=== PATIENT | male | born 1995 | race Hispanic/Latino ===

== ENCOUNTER → 2023-12-07 | Outpatient (CLI) | payer OTHER, SELFPAY ==
--- OUTSIDE RECORDS SUMMARY | 2023-12-07 10:31 | XMS RPT_ITS | CCD ---
Author Name Unknown Address [address] [facility] [address] [place] [address] Organization [facility] Care Team Providers Care Subacute Nurse Name Role Phone MAST MALTED MIL[employer] MIXER-SPECIAL PROCEDURE TECHNOLOGIST, RENA Primary Care Physician [phone] MAST MALTED MIL[employer] MIXER-SPECIAL PROCEDURE TECHNOLOGIST, RENA Attending Unavailabl e MAST MALTED MILK MIXER-SPECIAL PROCEDURE TECHNOLOGIST, RENA Primary Care Unavailabl e MAST MALTED MILK MIXER-SPECIAL PROCEDURE TECHNOLOGIST, RENA Primary Care Unavailabl e MAST MALTED MILK MIXER-SPECIAL PROCEDURE TECHNOLOGIST, RENA Attending Unavailabl e MAST MALTED MILK MIXER-SPECIAL PROCEDURE TECHNOLOGIST, RENA Primary Care Unavailabl e MAST MALTED MILK MIXER-SPECIAL PROCEDURE TECHNOLOGIST, RENA Attending Unavailabl e ANN CUEVAS DO Attending Unavailable MAST MALTED MILK MIXER-SPECIAL PROCEDURE TECHNOLOGIST, RENA Primary Care Unavailabl e LALO ANGELES, QUAN Beck Attending Unavailable MAST MALTED MILK MIXER-SPECIAL PROCEDURE TECHNOLOGIST, RENA Primary Care Unavailabl e AMALIA ANGELES, SOFIA Cummings Attending Unavail able MAST MALTED MILK MIXER-SPECIAL PROCEDURE TECHNOLOGIST, RENA Primary Care Unavailabl e MAST MALTED MILK MIXER-SPECIAL PROCEDURE TECHNOLOGIST, RENA Primary Care Unavailabl e MAST MALTED MILK MIXER-SPECIAL PROCEDURE TECHNOLOGIST, RENA Attending Unavailabl e MAST MALTED MILK MIXER-SPECIAL PROCEDURE TECHNOLOGIST, RENA Primary Care Unavailabl e MAST MALTED MILK MIXER-SPECIAL PROCEDURE TECHNOLOGIST, RENA Attending Unavailabl e MAST MALTED MILK MIXER-SPECIAL PROCEDURE TECHNOLOGIST, RENA Primary Care Unavailabl e MAST MALTED MILK MIXER-SPECIAL PROCEDURE TECHNOLOGIST, RENA Attending Unavailabl e Medications Current Medications Medication Drug Class(es) Dates Sig (Normalized) Sig (Original) acetaminophen 325 mg oral tablet (1 source) Start: 09-27-2023 End: 10-07-2023 acetaminophen 325 mg oral tablet Dose : 650 mg = 2 tab(s), Oral, q4h, PRN as needed for fever, X 10 day(s), # 50 tab(s), 0 Refill(s), 10/07/23 9:53:00 AM EST Start Date: 09/27/23 Stop Date: 10/07/23 Status: Ordered azithromycin 250 mg oral tablet (1 source) Macrolide Antimicrobial Start: 05-07-2023 End: 05-12-2023 take 1 tablet by mouth once daily Zithromax Z-Andrey 250 mg oral tablet 1 dose, Oral, Daily, X 5 day(s), # 6 tab(s), 0 Refill(s), 05/12/23 1:15:00 AM EDT, 73.2 Start Date: 05/07/23 Stop Date: 05/12/23 Status: Ordered benzonatate 100 mg oral capsule (1 source) Non-narcotic Antitussive Start: 09-27-2023 End: 10-02-2023 Tessalon Perles 100 mg oral capsule Dose : 100 mg = 1 cap(s), Oral, q8h, PRN as needed for cough, X 5 day(s), # 30 cap(s), 0 Refill(s), 10/02/23 9:53:00 AM EST Start Date: 09/27/23 Stop Date: 10/02/23 Status: Ordered cetirizine hydrochloride 10 mg oral tablet (2 sources) Histamine-1 Receptor Antagonist Start: 08-25-2023 Zyrtec 10 mg oral tablet Dose : 10 mg = 1 tab(s), Oral, qDay, # 30 tab(s), 0 Refill(s), Pharmacy: [facility] #[id number], 166, cm, 08/25/23 9:32:00 EST, Height, kg, 08/25/23 9:32:00 EST, Dosing Weight Start Date: 08/25/23 Status: Ordered ibuprofen 600 mg oral tablet (1 source) Nonsteroidal Anti-inflammatory Drug Start: 09-27-2023 End: 10-07-2023 ibuprofen 600 mg oral tablet Dose : 600 mg = 1 tab(s), Oral, q6h, PRN for pain, Take with food or milk., X 10 day(s), # 40 tab(s), 0 Refill(s), 10/07/23 9:54:00 AM EST Start Date: 09/27/23 Stop Date: 10/07/23 Status: Ordered imiquimod 50 mg/ml topical cream (4 sources) Start: 04-28-2023 End: 08-30-2023 imiquimod 5% topical cream Apply 1 rigo, Topical, 3x/Wk, applied directly to wart; apply in a thin film to the affected skin and rub in gently and completelyapply prior to normal sleeping hrs and leave on for 6 to 10 hrs; may use for up to 16 weeks, # 24 EA, 3 Refill(s), Pharmacy: [facility] #[id number], Cream, 166, cm, 04/21/23 15:14:00 EDT, Height, 73.2, kg, 04/21/23 15:14:00 EDT, Dosing Weight Start Date: 04/28/23 Stop Date: 08/30/23 Status: Ordered loratadine 10 mg oral tablet (1 source) Start: 05-23-2023 Claritin 10 mg oral tablet Dose : 10 mg = 1 tab(s), Oral, qDay, # 30 tab(s), 2 Refill(s), Pharmacy: [facility] #[id number], 166, cm, 05/10/23 9:39:00 EDT, Height, kg, 05/10/23 9:39:00 EDT, Dosing Weight Start Date: 05/23/23 Status: Ordered tolnaftate 10 mg/ml topical cream (7 sources) Start: 04-21-2023 End: 04-27-2024 Tinactin 1% topical cream Apply 1 rigo, Topical, BID, # 30 gram(s), 1 Refill(s), Pharmacy: [facility] #[id number], Cream, 166, cm, 04/21/23 15:14:00 EDT, Height, 73.2, kg, 04/21/23 15:14:00 EDT, Dosing Weight Start Date: 04/21/23 Stop Date: 04/27/24 Status: Ordered valACYclovir 1000 mg oral tablet (3 sources) Herpesvirus Nucleoside Analog DNA Polymerase Inhibitor, Herpes Simplex Virus Nucleoside Analog DNA Polymerase Inhibitor, Herpes Zoster Virus Nucleoside Analog DNA Polymerase Inhibitor Start: 07-28-2023 valACYclovir 1 g oral tablet 0 Refill(s), 72.3 Start Date: 07/28/23 Status: Ordered Problems Active Problems Problem Classification Problem Date Documented Date Episodic/Chronic Genitourinary symptoms and ill-defined conditions (6 sources) Blood in urine 05-10-2023 Episodic Lymphadenitis (1 source) Cervical lymphadenopathy 10-03-2023 Episodic Mycoses (7 sources) Tinea cruris 04-21-2023 Episodic Other male genital disorders (2 sources) Disorder of penis, unspecified; 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, unspecified] Onset: 07-28-2023 Chronic Other skin disorders (3 sources) Eruption 07-28-2023 Episodic Other upper respiratory disease (2 sources) Seasonal allergy 08-25-2023 Chronic Otitis media and related conditions (2 sources) Dysfunction of eustachian tube 08-25-2023 Episodic Residual codes; unclassified (6 sources) High risk sexual behavior 05-10-2023 Episodic Skin and subcutaneous tissue infections (1 source) Acute lymphangitis of neck; Translations: [Acute lymphangitis of neck] Onset: 05-07-2023 Episodic Unclassified (7 sources) Main spoken language Haitian 04-21-2023 Unclassified (12 sources) Patient encounter status 05-10-2023 Viral infection (3 sources) Genital herpes simplex 07-05-2023 Chronic Viral infection (8 sources) Genital warts; Translations: [Viral disease] Onset: 09-27-2023 04-21-2023 Episodic Past or Other Problems Problem Classification Problem Date Documented Date Episodic/Chronic Immunizations and screening for infectious disease (2 sources) Encounter for screening for infections with a predominantly sexual mode of transmission; Translations: [Encounter for screening for infections with a predominantly sexual mode of transmission] Onset: 05-10-2023 Episodic Other upper respiratory infections (8 sources) Sore throat symptom; Translations: [Acute pharyngitis, unspecified] Onset: 05-10-2023 05-10-2023 Episodic Residual codes; unclassified (2 sources) High risk heterosexual behavior; Translations: [High risk heterosexual behavior] Onset: 05-10-2023 Episodic Results Test Name Value Interpretation Reference Range Facil ity Vital Signs Date Time Vital Sign Value Performing Clinician Facility 09-27-2023 10:50-0500 Body temperature 99.5 [degF] SOFIA HOLLAND MD [facility] 09-27-2023 09:35-0500 Body temperature 101.66 [degF] SOFIA HOLLAND MD [facility] 09-27-2023 09:35-0500 Diastolic Blood Pressure Non-Invasive 78 mm[Hg] SOFIA HOLLAND MD [facility] 09-27-2023 09:35-0500 Heart rate 111 /min SOFIA HOLLAND MD [facility] 09-27-2023 09:35-0500 Respiratory rate 20 /min SOFIA HOLLAND MD [facility] 09-27-2023 09:35-0500 Systolic Blood Pressure Non-Invasive 114 mm[Hg] SOFIA HOLLAND MD [facility] 05-07-2023 01:15-0400 Body temperature 98.6 [degF] QUAN MAY MD [facility] 05-07-2023 01:15-0400 Diastolic Blood Pressure Non-Invasive 90 1 QUAN MAY MD [facility] 05-07-2023 01:15-0400 Heart rate 68 /min QUAN MAY MD [facility] 05-07-2023 01:15-0400 Respiratory rate 18 /min QUAN MAY MD [facility] 05-07-2023 01:15-0400 Systolic Blood Pressure Non-Invasive 132 1 QUAN MAY MD [facility] Encounters Encounter Date Encounter Type Care Provider Facility Start: 10-18-2023 End: 10-19-2023 ambulatory RENA MAST MALTED MILK MIXER-SPECIAL PROCEDURE TECHNOLOGIST Facility:[facility] Start: 10-18-2023 End: 10-18-2023 Patient encounter procedure RENA MAST MALTED MIL[employer] MIXER-SPECIAL PROCEDURE TECHNOLOGIST [facility] Start: 09-27-2023 End: 09-27-2023 Emergency department patient visit SOFIA HOLLAND MD Facility:[facility] Start: 09-27-2023 End: 09-27-2023 Emergency department patient visit SOFIA HOLLAND MD [facility] Start: 09-26-2023 End: 09-26-2023 Emergency department patient visit ANN FAITH Facility:[facility] Start: 08-25-2023 End: 08-30-2023 ambulatory RENA MAST MALTED MILK MIXER-SPECIAL PROCEDURE TECHNOLOGIST Facility:[facility] Start: 07-28-2023 End: 08-02-2023 ambulatory RENA MAST MALTED MILK MIXER-SPECIAL PROCEDURE TECHNOLOGIST Facility:[facility] Start: 07-28-2023 End: 08-01-2023 Outreach Lab RENA MAST MALTED MILK MIXER-SPECIAL PROCEDURE TECHNOLOGIST [facility] Start: 05-12-2023 End: 05-17-2023 ambulatory RENA MAST MALTED MILK MIXER-SPECIAL PROCEDURE TECHNOLOGIST Facility:[facility] Start: 05-12-2023 End: 05-16-2023 Outreach Lab RENA MAST MALTED MILK MIXER-SPECIAL PROCEDURE TECHNOLOGIST [facility] Start: 05-10-2023 End: 05-15-2023 ambulatory RENA MAST MALTED MILK MIXER-SPECIAL PROCEDURE TECHNOLOGIST Facility:[facility] Start: 05-10-2023 End: 05-14-2023 Outreach Lab RENA MAST MALTED MILK MIXER-SPECIAL PROCEDURE TECHNOLOGIST [facility] Start: 05-10-2023 End: 05-15-2023 ambulatory RENA MAST MALTED MILK MIXER-SPECIAL PROCEDURE TECHNOLOGIST Facility:[facility] Start: 05-10-2023 End: 05-14-2023 Outreach Lab RENA MAST MALTED MILK MIXER-SPECIAL PROCEDURE TECHNOLOGIST [facility] Start: 05-07-2023 End: 05-07-2023 Emergency department patient visit QUAN MAY MD Facility:[facility] Start: 05-07-2023 End: 05-07-2023 Emergency department patient visit QUAN MAY MD [facility] Procedures Date Procedure Procedure Detail Performing Clinician None (qualifier value) SOFIA HOLLAND MD Payers Date Payer Category Payer Private Health Insurance [facility] [id number] 2023 Private Health Insurance [facility] [id number] 1997 Unknown [id number] [id number] [id number] 1997 Unknown [id number] 2.16.8 [id number] 1997 Unknown [id number] 2.16.8 [id number] 1997 Unknown [id number] 2.16.8 [id number] 1997 Unknown [id number] 2.16.8 [id number] 1997 Unknown [id number] 2.16.8 [id number] 1997 Unknown [id number] 2.16.8 [id number] 1997 Unknown [id number] 2.16.8 [id number] 1997 Unknown [id number] 2.16.8 [id number] Social History Date Type Detail Facility Start: 04-21-2023 Tobacco smoking status Never s moked tobacco (finding) [facility] [place] Sex Assigned At Sex [facility] Functional Status Date Assessment Result Facility 09-27-2023 [facility] 09-27-2023 Functional Status Standard Safet y ID band on, Call device within reach, Bed in low position, Wheels locked [facility] 05-07-2023 Functional Status Standard Safet y ID band on, Call device within reach, Bed in low position, Wheels locked, Upper/Half-Length side-rails up, Phone within reach, Safety level maintained [facility] Mental Status Date Assessment Result Facility 09-27-2023 Mental Status Orientation Oriented x 4 [facility] 09-27-2023 Mental Status [facility] 05-07-2023 Mental Status Orientation Oriented x 4 [facility] Clinical Notes 05-07-2023 to 09-27-2023 LaboratoryLaboratory Note Date & Type Note Facility 09-27-2023 Hospital Discharge instructions Patient Education 09/27/2023 10:51:09 Viral Syndrome (Adult)(Haitian) S ndrome Viral [Viral Syndrome: Adult] Deja enfermedad viral puede ocasionar diferentes s ntomas que dependen de cu l sea la parte de trevizo cuerpo afectada por el virus. Si el virus se aloja en la nariz, la garganta o los pulmones, puede provocar tos, dolor de garganta, congesti n y, en ocasiones, dolor de cindy. Si se aloja en el est nancy o el tracto intestinal, puede provocar v mitos y diarrea. En ocasiones, puede causar s ntomas vagos, tales dorie dolor generalizado, sensaci n de cansancio, p rdida de apetito o fiebre. Deja enfermedad viral suele durar entre deja y dos semanas; keiry vez un poco m s. En algunos casos, deja infecci n m s grave puede verse dorie un s ndrome viral yousuf los primeros d as de la enfermedad. Puede que deban hacerle otro examen y an lisis adicionales para saber de cu l de los dos casos se trata. Es importante que preste atenci n a los signos que se describen a continuaci n. Cuidados en la casa Si los s ntomas son graves, descanse en trevizo casa yousuf los primeros dos o cyndi d as. Al [place] del humo del cigarrillo, tanto trevizo propio humo dorie el humo de otras personas. Puede usar acetaminof n o ibuprofeno para controlar la fiebre, el dolor muscular y el dolor de cindy, a menos que le hayan recetado otro medicamento para esto. Si tiene deja enfermedad renal o hep gagan cr angus o alguna vez tuvo lcera estomacal o sangrado gastrointestinal, hable con trevizo m dico antes de usar estos medicamentos. Ninguna persona cici de 18 a os que est enferma con fiebre deber a tommy aspirina porque puede provocarle graves da os en el h gado. Es posible que tenga poco apetito, por lo que deja dieta ligera est micah. Para evitar la deshidrataci n, mame entre 8 y 12 vasos de ocho onzas (250 cm3) de l quido cada d a. Puede ser agua, jugo de naranja y limonada, jugo de manzana, uva y ar ndano, jugos de frutas violet, reemplazo de electrolitos y bebidas deportivas, caf y t s descafeinados. Si le diagnosticaron deja enfermedad renal, pregunte a trevizo m dico cu nto y qu tipos de l quidos deber a beber para prevenir la deshidrataci n. Si tiene deja enfermedad renal, beber demasiada cantidad de l quidos puede hacer que se acumule en el cuerpo, lo que puede ser peligroso para trevizo mesfin. Los medicamentos de venta beatriz no reducir n la duraci n de la enfermedad, donte pueden ser tiles para aliviar la tos, el dolor de garganta, y la congesti n nasal y paranasal. No use descongestionantes si tiene la presi n arterial james. Visitas de control Kalyn edja visita de control a trevizo proveedor de atenci n m dica si no empieza a sentirse mejor yousuf la semana pr xima. Cu ndo debe buscar atenci n m dica Obtenga atenci n m dica de inmediato si algo de lo siguiente ocurre: Tos con mucho esputo (mucosidad) de color o con kim. Dolor en el pecho, falta de aire, silbidos o dificultad para respirar. Dolor de cindy hussain, dolor en la sivan, el j carlos o los o dos. Dolor hussain y chary en la parte inferior derecha de trevizo abdomen. V xiang persistente (no puede mantener los l quidos en el est nancy). Diarrea frecuente (m s de 5 veces al d a); kim (de color rojizo o negruzco) o mucosidad en la diarrea. Se siente d roseann, mareado o a punto de desmayarse. Thomas sed. Fiebre de 100.4 F (38 C) [oral] o m s, que no mejora con los medicamentos para la fiebre. Convulsiones. [id number] [employer]. [address] [place] [id number]. Todos los derechos reservados. Esta informaci n no pretende sustituir la atenci n m dica profesional. S lo trevizo m dico puede diagnosticar y tratar un problema de mesfin. 09/27/2023 10:51:09 Viral Syndrome (Adult)(Haitian) S ndrome Viral [Viral Syndrome: Adult] Deja enfermedad viral puede ocasionar diferentes s ntomas que dependen de cu l sea la parte de trevizo cuerpo afectada por el virus. Si el virus se aloja en la nariz, la garganta o los pulmones, puede provocar tos, dolor de garganta, congesti n y, en ocasiones, dolor de cindy. Si se aloja en el est nancy o el tracto intestinal, puede provocar v mitos y diarrea. En ocasiones, puede causar s ntomas vagos, tales dorie dolor generalizado, sensaci n de cansancio, p rdida de apetito o fiebre. Deja enfermedad viral suele durar entre deja y dos semanas; keiry vez un poco m s. En algunos casos, deja infecci n m s grave puede verse dorie un s ndrome viral yousuf los primeros d as de la enfermedad. Puede que deban hacerle otro examen y an lisis adicionales para saber de cu l de los dos casos se trata. Es importante que preste atenci n a los signos que se describen a continuaci n. Cuidados en la casa Si los s ntomas son graves, descanse en trevizo casa yousuf los primeros dos o cyndi d as. Al [place] del humo del cigarrillo, tanto trevizo propio humo dorie el humo de otras personas. Puede usar acetaminof n o ibuprofeno para controlar la fiebre, el dolor muscular y el dolor de cindy, a menos que le hayan recetado otro medicamento para esto. Si tiene deja enfermedad renal o hep gagan cr angus o alguna vez tuvo lcera estomacal o sangrado gastrointestinal, hable con trevizo m dico antes de usar estos medicamentos. Ninguna persona cici de 18 a os que est enferma con fiebre deber a tommy aspirina porque puede provocarle graves da os en el h gado. Es posible que tenga poco apetito, por lo que deja dieta ligera est micah. Para evitar la deshidrataci n, mame entre 8 y 12 vasos de ocho onzas (250 cm3) de l quido cada d a. Puede ser agua, jugo de naranja y limonada, jugo de manzana, uva y ar ndano, jugos de frutas violet, reemplazo de electrolitos y bebidas deportivas, caf y t s descafeinados. Si le diagnosticaron deja enfermedad renal, pregunte a trevizo m dico cu nto y qu tipos de l quidos deber a beber para prevenir la deshidrataci n. Si tiene deja enfermedad renal, beber demasiada cantidad de l quidos puede hacer que se acumule en el cuerpo, lo que puede ser peligroso para trevizo mesfin. Los medicamentos de venta beatriz no reducir n la duraci n de la enfermedad, donte pueden ser tiles para aliviar la tos, el dolor de garganta, y la congesti n nasal y paranasal. No use descongestionantes si tiene la presi n arterial james. Visitas de control Kalyn deja visita de control a trevizo proveedor de atenci n m dica si no empieza a sentirse mejor yousuf la semana pr xima. Cu ndo debe buscar atenci n m dica Obtenga atenci n m dica de inmediato si algo de lo siguiente ocurre: Tos con mucho esputo (mucosidad) de color o con kim. Dolor en el pecho, falta de aire, silbidos o dificultad para respirar. Dolor de cindy hussain, dolor en la sivan, el j carlos o los o dos. Dolor hussain y chary en la parte inferior derecha de trevizo abdomen. V xiang persistente (no puede mantener los l quidos en el est nancy). Diarrea frecuente (m s de 5 veces al d a); kim (de color rojizo o negruzco) o mucosidad en la diarrea. Se siente d roseann, mareado o a punto de desmayarse. Thomas sed. Fiebre de 100.4 F (38 C) [oral] o m s, que no mejora con los medicamentos para la fiebre. Convulsiones. [id number] [employer]. [address] [place] [id number]. Todos los derechos reservados. Esta informaci n no pretende sustituir la atenci n m dica profesional. S lo trevizo m dico puede diagnosticar y tratar un problema de mesfin. 09/27/2023 09:54:36 Pharyngitis, Report Pending(Haitian) Faringitis (dolor de garganta), informe pendiente La faringitis (dolor de garganta) suele ser provocada por un virus. Tambi n puede ser causada por la bacteria estreptococo. A esta enfermedad con frecuencia se le llama amigdalitis estreptoc cica Tanto la infecci n viral o por estreptococo pueden provocar dolor de garganta que se siente peor al tragar, dolor en todo el cuerpo, dolor de cindy y fiebre. Ambos tipos de infecci n son contagiosos. Se los puede contagiar al toser, al besar o al tocar a otras personas despu s de haberse tocado la boca o la nariz. Se le mobley hecho deja prueba para determinar si la infecci n que usted tiene fue causada por estreptococos. Llame a anupama centro o a trevizo proveedor de atenci n m dica si no le dieron los resultados de la prueba. Si la prueba da positiva en la infecci n por estreptococo, deber tommy antibi ticos. En magdaleno momento, podemos pasar la receta por tel fono a trevizo farmacia. Si el resultado es negativo, probablemente tenga deja faringitis viral. En anupama lynn, no necesitar tratamiento con antibi ticos. Hasta que reciba los resultados de la prueba de estreptococo, debe quedarse en casa y no debe ir a trabajar. Si se est examinando a trevizo hijo, debe quedarse en casa y no debe ir a la escuela. Cuidados en el hogar Descanse en el hogar. Mame abundante cantidad de l quidos para evitar la deshidrataci n. Si le dijeron que trevizo prueba confirmaba la infecci n por estreptococos, usted o trevizo hijo deber n ausentarse del trabajo o la escuela los dos primeros d as del tratamiento con antibi ticos. Despu s de eso, la enfermedad ya no es contagiosa. Usted o trevizo hijo pueden regresar al trabajo o a la escuela cuando se sientan mejor. [place] el medicamento antibi krishna yousuf los 10 d as completos. No suspenda el medicamento aunque usted o trevizo hijo se sientan mejor. [place] es muy importante para asegurarse de que la infecci n se haya tratado por completo. Tambi n es importante prevenir que se desarrollen g rmenes resistentes a los antibi ticos. Si a usted o a trevizo hijo le administraron deja inyecci n de antibi ticos, no necesitan tommy m s antibi ticos. Use pastillas o un aerosol adormecedor para la garganta para ayudar a reducir el dolor. Hacer g rgaras con agua tibia con ro tambi n ayudar a aliviar el dolor de garganta. Disuelva cucharadita de ro en 1 vaso de agua tibia. Los ni os pueden beber jugo de a sorbos o comer deja paleta de helado. Los ni os de 5 a os o m s tambi n pueden chupar deja paleta de camille o un caramelo aryan. No consuma alimentos salados ni picantes y tampoco se los prepare a trevizo hijo. Estos pueden irritar la garganta. Otros medicamentos para ni os: Puede darle paracetamol a trevizo hijo para aliviar la fiebre, el nerviosismo y el malestar. En beb s mayores de seis meses puede usar ibuprofeno en lugar de paracetamol. Si el ni o tiene deja enfermedad hep gagan o renal cr angus, o mobley tenido alguna vez deja lcera estomacal o un sangrado gastrointestinal, consulte con trevizo proveedor de atenci n m dica antes de darle estos medicamentos. La aspirina no debe usarse nunca en personas menores de 18 a os que tengan fiebre. Es posible que le provoque graves da os en el h gado. Otros medicamentos para adultos: Puede usar paracetamol o ibuprofeno para controlar la fiebre o el dolor, a menos que le hayan recetado otro medicamento para esto. Si tiene deja enfermedad hep gagan o renal cr angus, o mobley tenido alguna vez deja lcera estomacal o un sangrado gastrointestinal, consulte con trevizo proveedor de atenci n m dica antes de tommy estos medicamentos. Atenci n de seguimiento Realice el seguimiento con trevizo proveedor de atenci n m dica o nuestro personal m dico, si usted o trevizo hijo no empiezan a sentirse mejor yousuf la semana pr xima. Cu ndo buscar atenci n m dica Llame a trevizo hijo de inmediato si ocurre algo de lo siguiente: Fiebre seg n le indique el proveedor de atenci n m dica. En ni os, busque atenci n m dica si ocurre algo de lo siguiente: oSu hijo de cualquier edad tiene fiebres recurrentes de m s de 104 F (40 C). oSu hijo tiene menos de 2 a os y fiebre de 100.4 F (38 C) yousuf m s de 1 d a. oSu hijo tiene 2 a os o m s y fiebre de 100.4 F (38 C) yousuf m s de 3 d as. Dolor nuevo o en aumento en los o dos, los senos paranasales o la cindy. Bultos dolorosos en la parte de atr s del j carlos. J Carlos r gido. Ganglios linf ticos que aumentan de cristobal o. No puede tragar l quidos, babea mucho o no puede abrir micah la boca debido al dolor de garganta. Se ales de deshidrataci n, dorie orina muy oscura o ausencia de orina, ojos hundidos y mareos. Tiene problemas para respirar o hace ruidos al respirar. Disfon a. Un nuevo sarpullido. Otros s ntomas que empeoran. Prevenci n Puede adoptar las siguientes medidas para prevenir deja infecci n: Mantenga buenos h bitos higi nicos de lavado de yasmin. Evite el contacto cercano con personas que tengan dolor de garganta, resfriados u otras infecciones respiratorias superiores. No fume y evite exponerse al humo de cigarrillos de otras personas. Aseg rese de tener amelia vacunas al d a. [id number] [employer]. [address] [place] [id number]. Todos los derechos reservados. Esta informaci n no pretende sustituir la atenci n m dica profesional. S lo trevizo m dico puede diagnosticar y tratar un problema de mesfin. 09/27/2023 09:54:14 Viral Syndrome (Adult)(Haitian) S ndrome Viral [Viral Syndrome: Adult] Deja enfermedad viral puede ocasionar diferentes s ntomas que dependen de cu l sea la parte de trevizo cuerpo afectada por el virus. Si el virus se aloja en la nariz, la garganta o los pulmones, puede provocar tos, dolor de garganta, congesti n y, en ocasiones, dolor de cindy. Si se aloja en el est nancy o el tracto intestinal, puede provocar v mitos y diarrea. En ocasiones, puede causar s ntomas vagos, tales dorie dolor generalizado, sensaci n de cansancio, p rdida de apetito o fiebre. Deja enfermedad viral suele durar entre deja y dos semanas; keiry vez un poco m s. En algunos casos, deja infecci n m s grave puede verse dorie un s ndrome viral yousuf los primeros d as de la enfermedad. Puede que deban hacerle otro examen y an lisis adicionales para saber de cu l de los dos casos se trata. Es importante que preste atenci n a los signos que se describen a continuaci n. Cuidados en la casa Si los s ntomas son graves, descanse en trevizo casa yousuf los primeros dos o cyndi d as. [place] del humo del cigarrillo, tanto trevizo propio humo dorie el humo de otras personas. Puede usar acetaminof n o ibuprofeno para controlar la fiebre, el dolor muscular y el dolor de cindy, a menos que le hayan recetado otro medicamento para esto. Si tiene deja enfermedad renal o hep gagan cr angus o alguna vez tuvo lcera estomacal o sangrado gastrointestinal, hable con trevizo m dico antes de usar estos medicamentos. Ninguna persona cici de 18 a os que est enferma con fiebre deber a tommy aspirina porque puede provocarle graves da os en el h gado. Es posible que tenga poco apetito, por lo que deja dieta ligera est micah. Para evitar la deshidrataci n, mame entre 8 y 12 vasos de ocho onzas (250 cm3) de l quido cada d a. Puede ser agua, jugo de naranja y limonada, jugo de manzana, uva y ar ndano, jugos de frutas violet, reemplazo de electrolitos y bebidas deportivas, caf y t s descafeinados. Si le diagnosticaron deja enfermedad renal, pregunte a trevizo m dico cu nto y qu tipos de l quidos deber a beber para prevenir la deshidrataci n. Si tiene deja enfermedad renal, beber demasiada cantidad de l quidos puede hacer que se acumule en el cuerpo, lo que puede ser peligroso para trevizo mesfin. Los medicamentos de venta beatriz no reducir n la duraci n de la enfermedad, donte pueden ser tiles para aliviar la tos, el dolor de garganta, y la congesti n nasal y paranasal. No use descongestionantes si tiene la presi n arterial james. Visitas de control Kalyn deja visita de control a trevizo proveedor de atenci n m dica si no empieza a sentirse mejor yousuf la semana pr xima. Cu ndo debe buscar atenci n m dica Obtenga atenci n m dica de inmediato si algo de lo siguiente ocurre: Tos con mucho esputo (mucosidad) de color o con kim. Dolor en el pecho, falta de aire, silbidos o dificultad para respirar. Dolor de cindy hussain, dolor en la sivan, el j carlos o los o dos. Dolor hussain y chary en la parte inferior derecha de trevizo abdomen. V xiang persistente (no puede mantener los l quidos en el est nancy). Diarrea frecuente (m s de 5 veces al d a); kim (de color rojizo o negruzco) o mucosidad en la diarrea. Se siente d rosenan, mareado o a punto de desmayarse. Thomas sed. Fiebre de 100.4 F (38 C) [oral] o m s, que no mejora con los medicamentos para la fiebre. Convulsiones. [id number] [employer]. [address] [place] [address], [place] [address]. Todos los derechos reservados. Esta informaci n no pretende sustituir la atenci n m dica profesional. S lo trevizo m dico puede diagnosticar y tratar un problema de mesfin. Follow Up Care 09/27/2023 09:32:48 With:ERNA FIELDS Address: [address] [place] [phone]- [phone] When:2-4 days [facility] 09-27-2023 Note Discharge Instructions Thank you for allowing [facility] to assist you with your healthcare needs. The following is important discharge information regarding your hospital visit. Diagnosis from Today's Visit Cough Fever Sore throat - Adult Viral syndrome What to Do Next Instructions from Your Care Team No qualifying data available. Post Acute Orders No qualifying data available. You Need to Schedule the Following Appointments Follow Up with RENA FIELDS When Within 2-4 days Where: [address] [place] [phone] Allergies NKA Medications Please ask your primary doctor or pharmacist before taking any other medication not listed, including over the counter drugs, herbal medications, vitamins and or supplements as they may interact with your home medications. What How Much When Why Instructions Last Dose New acetaminophen (acetaminophen 325 mg oral tablet) 2 tab(s) by mouth Every 4 hours as needed for as needed for fever Duration: 10 Days Printed Prescription New benzonatate (Tessalon Perles 100 mg oral capsule) 1 cap by mouth Every 8 hours as needed for as needed for cough Duration: 5 Days Printed Prescription New ibuprofen (ibuprofen 600 mg oral tablet) 1 tab(s) by mouth Every 6 hours as needed for for pain Duration: 10 Days Take with food or milk. Printed Prescription Unchanged cetirizine (Zyrtec 10 mg oral tablet) 1 tab(s) by mouth Once a day Unchanged tolnaftate topical (Tinactin 1% topical cream) 1 application Topical Two (2) times a day Jock itch Unchanged valACYclovir (valACYclovir 1 g oral tablet) Please take this list to your next doctor s visit. Bring all medications you take, including over the counter medications, herbals and other supplements with you to your doctor s visit. Patients and families are reminded to discard old lists and to update any records with all medication providers or retail pharmacies. Education Materials S ndrome Viral [Viral Syndrome: Adult] Deja enfermedad viral puede ocasionar diferentes s ntomas que dependen de cu l sea la parte de trevizo cuerpo afectada por el virus. Si el virus se aloja en la nariz, la garganta o los pulmones, puede provocar tos, dolor de garganta, congesti n y, en ocasiones, dolor de cindy. Si se aloja en el est nancy o el tracto intestinal, puede provocar v mitos y diarrea. En ocasiones, puede causar s ntomas vagos, tales dorie dolor generalizado, sensaci n de cansancio, p rdida de apetito o fiebre. Deja enfermedad viral suele durar entre deja y dos semanas; keiry vez un poco m s. En algunos casos, deja infecci n m s grave puede verse dorie un s ndrome viral yousuf los primeros d as de la enfermedad. Puede que deban hacerle otro examen y an lisis adicionales para saber de cu l de los dos casos se trata. Es importante que preste atenci n a los signos que se describen a continuaci n. Cuidados en la casa Si los s ntomas son graves, descanse en trevizo casa yousuf los primeros dos o cyndi d as. [place] del humo del cigarrillo, tanto trevizo propio humo dorie el humo de otras personas. Puede usar acetaminof n o ibuprofeno para controlar la fiebre, el dolor muscular y el dolor de cindy, a menos que le hayan recetado otro medicamento para esto. Si tiene deja enfermedad renal o hep gagan cr angus o alguna vez tuvo lcera estomacal o sangrado gastrointestinal, hable con trevizo m dico antes de usar estos medicamentos. Ninguna persona cici de 18 a os que est enferma con fiebre deber a tommy aspirina porque puede provocarle graves da os en el h gado. Es posible que tenga poco apetito, por lo que deja dieta ligera est micah. Para evitar la deshidrataci n, mame entre 8 y 12 vasos de ocho onzas (250 cm3) de l quido cada d a. Puede ser agua, jugo de naranja y limonada, jugo de manzana, uva y ar ndano, jugos de frutas violet, reemplazo de electrolitos y bebidas deportivas, caf y t s descafeinados. Si le diagnosticaron deja enfermedad renal, pregunte a trevizo m dico cu nto y qu tipos de l quidos deber a beber para prevenir la deshidrataci n. Si tiene deja enfermedad renal, beber demasiada cantidad de l quidos puede hacer que se acumule en el cuerpo, lo que puede ser peligroso para trevizo mesfin. Los medicamentos de venta beatriz no reducir n la duraci n de la enfermedad, donte pueden ser tiles para aliviar la tos, el dolor de garganta, y la congesti n nasal y paranasal. No use descongestionantes si tiene la presi n arterial james. Visitas de control Kalyn deja visita de control a trevizo proveedor de atenci n m dica si no empieza a sentirse mejor yousuf la semana pr xima. Cu ndo debe buscar atenci n m dica Obtenga atenci n m dica de inmediato si algo de lo siguiente ocurre: Tos con mucho esputo (mucosidad) de color o con kim. Dolor en el pecho, falta de aire, silbidos o dificultad para respirar. Dolor de cindy hussain, dolor en la sivan, el j carlos o los o dos. Dolor hussain y chary en la parte inferior derecha de trevizo abdomen. V xiang persistente (no puede mantener los l quidos en el est nancy). Diarrea frecuente (m s de 5 veces al d a); kim (de color rojizo o negruzco) o mucosidad en la diarrea. Se siente d roseann, mareado o a punto de desmayarse. Thomas sed. Fiebre de 100.4 F (38 C) [oral] o m s, que no mejora con los medicamentos para la fiebre. Convulsiones. [id number] [employer]. [address] [place] [id number]. Todos los derechos reservados. Esta informaci n no pretende sustituir la atenci n m dica profesional. S lo trevizo m dico puede diagnosticar y tratar un problema de mesfin. S ndrome Viral [Viral Syndrome: Adult] Deja enfermedad viral puede ocasionar diferentes s ntomas que dependen de cu l sea la parte de trevizo cuerpo afectada por el virus. Si el virus se aloja en la nariz, la garganta o los pulmones, puede provocar tos, dolor de garganta, congesti n y, en ocasiones, dolor de cindy. Si se aloja en el est nancy o el tracto intestinal, puede provocar v mitos y diarrea. En ocasiones, puede causar s ntomas vagos, tales dorie dolor generalizado, sensaci n de cansancio, p rdida de apetito o fiebre. Deja enfermedad viral suele durar entre deja y dos semanas; keiry vez un poco m s. En algunos casos, deja infecci n m s grave puede verse dorie un s ndrome viral yousuf los primeros d as de la enfermedad. Puede que deban hacerle otro examen y an lisis adicionales para saber de cu l de los dos casos se trata. Es importante que preste atenci n a los signos que se describen a continuaci n. Cuidados en la casa Si los s ntomas son graves, descanse en trevizo casa yousuf los primeros dos o cyndi d as. [place] del humo del cigarrillo, tanto trevizo propio humo dorie el humo de otras personas. Puede usar acetaminof n o ibuprofeno para controlar la fiebre, el dolor muscular y el dolor de cindy, a menos que le hayan recetado otro medicamento para esto. Si tiene deja enfermedad renal o hep gagan cr angus o alguna vez tuvo lcera estomacal o sangrado gastrointestinal, hable con trevizo m dico antes de usar estos medicamentos. Ninguna persona cici de 18 a os que est enferma con fiebre deber a tommy aspirina porque puede provocarle graves da os en el h gado. Es posible que tenga poco apetito, por lo que deja dieta ligera est micah. Para evitar la deshidrataci n, mame entre 8 y 12 vasos de ocho onzas (250 cm3) de l quido cada d a. Puede ser agua, jugo de naranja y limonada, jugo de manzana, uva y ar ndano, jugos de frutas violet, reemplazo de electrolitos y bebidas deportivas, caf y t s descafeinados. Si le diagnosticaron deja enfermedad renal, pregunte a trevizo m dico cu nto y qu tipos de l quidos deber a beber para prevenir la deshidrataci n. Si tiene deja enfermedad renal, beber demasiada cantidad de l quidos puede hacer que se acumule en el cuerpo, lo que puede ser peligroso para trevizo mesfin. Los medicamentos de venta beatriz no reducir n la duraci n de la enfermedad, donte pueden ser tiles para aliviar la tos, el dolor de garganta, y la congesti n nasal y paranasal. No use descongestionantes si tiene la presi n arterial james. Visitas de control Kalyn deja visita de control a rtevizo proveedor de atenci n m dica si no empieza a sentirse mejor yousuf la semana pr xima. Cu ndo debe buscar atenci n m dica Obtenga atenci n m dica de inmediato si algo de lo siguiente ocurre: Tos con mucho esputo (mucosidad) de color o con kim. Dolor en el pecho, falta de aire, silbidos o dificultad para respirar. Dolor de cindy hussain, dolor en la sivan, el j carlos o los o dos. Dolor hussain y chary en la parte inferior derecha de trevizo abdomen. V xiang persistente (no puede mantener los l quidos en el est nancy). Diarrea frecuente (m s de 5 veces al d a); kim (de color rojizo o negruzco) o mucosidad en la diarrea. Se siente d roseann, mareado o a punto de desmayarse. Thomas sed. Fiebre de 100.4 F (38 C) [oral] o m s, que no mejora con los medicamentos para la fiebre. Convulsiones. [id number] [employer]. [address] [place] [id number]. Todos los derechos reservados. Esta informaci n no pretende sustituir la atenci n m dica profesional. S lo trevizo m dico puede diagnosticar y tratar un problema de mesfin. Faringitis (dolor de garganta), informe pendiente La faringitis (dolor de garganta) suele ser provocada por un virus. Tambi n puede ser causada por la bacteria estreptococo. A esta enfermedad con frecuencia se le llama amigdalitis estreptoc cica Tanto la infecci n viral o por estreptococo pueden provocar dolor de garganta que se siente peor al tragar, dolor en todo el cuerpo, dolor de cindy y fiebre. Ambos tipos de infecci n son contagiosos. Se los puede contagiar al toser, al besar o al tocar a otras personas despu s de haberse tocado la boca o la nariz. Se le mobley hecho deja prueba para determinar si la infecci n que usted tiene fue causada por estreptococos. Llame a anupama centro o a trevizo proveedor de atenci n m dica si no le dieron los resultados de la prueba. Si la prueba da positiva en la infecci n por estreptococo, deber tommy antibi ticos. En magdaleno momento, podemos pasar la receta por tel fono a trevizo farmacia. Si el resultado es negativo, probablemente tenga deja faringitis viral. En anupama lynn, no necesitar tratamiento con antibi ticos. Hasta que reciba los resultados de la prueba de estreptococo, debe quedarse en casa y no debe ir a trabajar. Si se est examinando a trevizo hijo, debe quedarse en casa y no debe ir a la escuela. Cuidados en el hogar Descanse en el hogar. Mame abundante cantidad de l quidos para evitar la deshidrataci n. Si le dijeron que trevizo prueba confirmaba la infecci n por estreptococos, usted o trevizo hijo deber n ausentarse del trabajo o la escuela los dos primeros d as del tratamiento con antibi ticos. Despu s de eso, la enfermedad ya no es contagiosa. Usted o trevizo hijo pueden regresar al trabajo o a la escuela cuando se sientan mejor. [place] el medicamento antibi krishna yousuf los 10 d as completos. No suspenda el medicamento aunque usted o trevizo hijo se sientan mejor. [place] es muy importante para asegurarse de que la infecci n se haya tratado por completo. Tambi n es importante prevenir que se desarrollen g rmenes resistentes a los antibi ticos. Si a usted o a trevizo hijo le administraron deja inyecci n de antibi ticos, no necesitan tommy m s antibi ticos. Use pastillas o un aerosol adormecedor para la garganta para ayudar a reducir el dolor. Hacer g rgaras con agua tibia con ro tambi n ayudar a aliviar el dolor de garganta. Disuelva cucharadita de ro en 1 vaso de agua tibia. Los ni os pueden beber jugo de a sorbos o comer deja paleta de helado. Los ni os de 5 a os o m s tambi n pueden chupar deja paleta de camille o un caramelo aryan. No consuma alimentos salados ni picantes y tampoco se los prepare a trevizo hijo. Estos pueden irritar la garganta. Otros medicamentos para ni os: Puede darle paracetamol a trevizo hijo para aliviar la fiebre, el nerviosismo y el malestar. En beb s mayores de seis meses puede usar ibuprofeno en lugar de paracetamol. Si el ni o tiene deja enfermedad hep gagan o renal cr angus, o mobley tenido alguna vez deja lcera estomacal o un sangrado gastrointestinal, consulte con trevizo proveedor de atenci n m dica antes de darle estos medicamentos. La aspirina no debe usarse nunca en personas menores de 18 a os que tengan fiebre. Es posible que le provoque graves da os en el h gado. Otros medicamentos para adultos: Puede usar paracetamol o ibuprofeno para controlar la fiebre o el dolor, a menos que le hayan recetado otro medicamento para esto. Si tiene deja enfermedad hep gagan o renal cr angus, o mobley tenido alguna vez deja lcera estomacal o un sangrado gastrointestinal, consulte con trevizo proveedor de atenci n m dica antes de tommy estos medicamentos. Atenci n de seguimiento Realice el seguimiento con trevizo proveedor de atenci n m dica o nuestro personal m dico, si usted o trevizo hijo no empiezan a sentirse mejor yousuf la semana pr xima. Cu ndo buscar atenci n m dica Llame a trevizo hijo de inmediato si ocurre algo de lo siguiente: Fiebre seg n le indique el proveedor de atenci n m dica. En ni os, busque atenci n m dica si ocurre algo de lo siguiente: oSu hijo de cualquier edad tiene fiebres recurrentes de m s de 104 F (40 C). oSu hijo tiene menos de 2 a os y fiebre de 100.4 F (38 C) yousuf m s de 1 d a. oSu hijo tiene 2 a os o m s y fiebre de 100.4 F (38 C) yousuf m s de 3 d as. Dolor nuevo o en aumento en los o dos, los senos paranasales o la cindy. Bultos dolorosos en la parte de atr s del j carlos. J Carlos r gido. Ganglios linf ticos que aumentan de cristobal o. No puede tragar l quidos, babea mucho o no puede abrir micah la boca debido al dolor de garganta. Se ales de deshidrataci n, dorie orina muy oscura o ausencia de orina, ojos hundidos y mareos. Tiene problemas para respirar o hace ruidos al respirar. Disfon a. Un nuevo sarpullido. Otros s ntomas que empeoran. Prevenci n Puede adoptar las siguientes medidas para prevenir deja infecci n: Mantenga buenos h bitos higi nicos de lavado de yasmin. Evite el contacto cercano con personas que tengan dolor de garganta, resfriados u otras infecciones respiratorias superiores. No fume y evite exponerse al humo de cigarrillos de otras personas. Aseg rese de tener amelia vacunas al d a. [id number] [employer]. [address] [place] [id number]. Todos los derechos reservados. Esta informaci n no pretende sustituir la atenci n m dica profesional. S lo trevizo m dico puede diagnosticar y tratar un problema de mesfin. S ndrome Viral [Viral Syndrome: Adult] Deja enfermedad viral puede ocasionar diferentes s ntomas que dependen de cu l sea la parte de trevizo cuerpo afectada por el virus. Si el virus se aloja en la nariz, la garganta o los pulmones, puede provocar tos, dolor de garganta, congesti n y, en ocasiones, dolor de cindy. Si se aloja en el est nancy o el tracto intestinal, puede provocar v mitos y diarrea. En ocasiones, puede causar s ntomas vagos, tales dorie dolor generalizado, sensaci n de cansancio, p rdida de apetito o fiebre. Deja enfermedad viral suele durar entre deja y dos semanas; keiry vez un poco m s. En algunos casos, deja infecci n m s grave puede verse dorie un s ndrome viral yousuf los primeros d as de la enfermedad. Puede que deban hacerle otro examen y an lisis adicionales para saber de cu l de los dos casos se trata. Es importante que preste atenci n a los signos que se describen a continuaci n. Cuidados en la casa Si los s ntomas son graves, descanse en trevizo casa yousuf los primeros dos o cyndi d as. Al [place] del humo del cigarrillo, tanto trevizo propio humo dorie el humo de otras personas. Puede usar acetaminof n o ibuprofeno para controlar la fiebre, el dolor muscular y el dolor de cindy, a menos que le hayan recetado otro medicamento para esto. Si tiene deja enfermedad renal o hep gagan cr angus o alguna vez tuvo lcera estomacal o sangrado gastrointestinal, hable con trevizo m dico antes de usar estos medicamentos. Ninguna persona cici de 18 a os que est enferma con fiebre deber a tommy aspirina porque puede provocarle graves da os en el h gado. Es posible que tenga poco apetito, por lo que deja dieta ligera est micah. Para evitar la deshidrataci n, mame entre 8 y 12 vasos de ocho onzas (250 cm3) de l quido cada d a. Puede ser agua, jugo de naranja y limonada, jugo de manzana, uva y ar ndano, jugos de frutas violet, reemplazo de electrolitos y bebidas deportivas, caf y t s descafeinados. Si le diagnosticaron deja enfermedad renal, pregunte a trevizo m dico cu nto y qu tipos de l quidos deber a beber para prevenir la deshidrataci n. Si tiene deja enfermedad renal, beber demasiada cantidad de l quidos puede hacer que se acumule en el cuerpo, lo que puede ser peligroso para trevizo mesfin. Los medicamentos de venta beatriz no reducir n la duraci n de la enfermedad, donte pueden ser tiles para aliviar la tos, el dolor de garganta, y la congesti n nasal y paranasal. No use descongestionantes si tiene la presi n arterial james. Visitas de control Kalyn deja visita de control a trevizo proveedor de atenci n m dica si no empieza a sentirse mejor yousuf la semana pr xima. Cu ndo debe buscar atenci n m dica Obtenga atenci n m dica de inmediato si algo de lo siguiente ocurre: Tos con mucho esputo (mucosidad) de color o con kim. Dolor en el pecho, falta de aire, silbidos o dificultad para respirar. Dolor de cindy hussain, dolor en la sivan, el j carlos o los o dos. Dolor hussain y chary en la parte inferior derecha de trevizo abdomen. V xiang persistente (no puede mantener los l quidos en el est nancy). Diarrea frecuente (m s de 5 veces al d a); kim (de color rojizo o negruzco) o mucosidad en la diarrea. Se siente d roseann, mareado o a punto de desmayarse. Thomas sed. Fiebre de 100.4 F (38 C) [oral] o m s, que no mejora con los medicamentos para la fiebre. Convulsiones. [id number] [employer]. [address] [place] [address], [place] [address]. Todos los derechos reservados. Esta informaci n no pretende sustituir la atenci n m dica profesional. S lo trevizo m dico puede diagnosticar y tratar un problema de mesfin. Additional Information VACCINATE! IT SAVES LIVES! Members of the community who have not yet received the COVID-19 vaccine and would like to receive it can visit one of [facility] vaccine clinics. There are many vaccine clinic locations within the [facility]. For locations and available times, please visit [email or web address] It is important to note that some COVID mobile vaccine clinics are held outdoors and may be canceled in rainy or stormy conditions. To learn more about pediatric vaccinations (ages 5-11), we invite you to visit the [facility] webpage. [email or web address] [email or web address] To learn more about the COVID-19 vaccine, we invite you to visit the CDC website for a list of frequently asked questions. https://www.cdc.gov/coronavirus/20 19-ncov/vaccines/faq.html [facility] Patient Portal Access Instructions: Stay connected with your healthcare team and access your personal medical information anytime with the [employer] Patient Portal. If you would like a full copy of your medical records please contact the [facility] Medical Records Department Monday through Monday between 8a.m. and 4:30p.m. Please follow the directions below to access the portal: 1.Access the email account you provided upon registration to the [facility].2.Look for an invitation email from [facility].3.Open the email and access the invitation link: Accept Invitation to [facility]4.Fill in the required lai to create your account. Sign into [email or web address] with your username and password that you created in the above steps to stay up to date. You can then view a summary of results, a summary of your visits, and the ability to download your summaries to your computer or send the information securely to a physician. Remember that your healthcare information is confidential, so carefully consider who you will allow to register on the [employer] Patient Portal for access to your information. You can also access the [employer] Patient Portal on the [employer]. Simply click on Health Records under Health Data and then click on the [employer] logo. HOW TO SAFELY DISPOSE OF PRESCRIPTION MEDICATIONS Please use one of the following methods to safely dispose of your unused medications. 1.Use a drug disposal kit: the drug disposal pouch allows you to safely discard your old and unused drugs. Ask your nurse to give you one when you are discharged.2.Visit a local take-back location: Many local pharmacies and police departments have programs that collect old and unwanted prescription drugs. Call your local pharmacy or go to http://[employer].Teachable/7A4Rk1c to find one close to you.3.Make use of household items: Use cat litter or old coffee grounds to dispose medications if other options are not available. Mix your drugs with these household products, seal them in an airtight container and throw it into the garbage. Call [facility]: [phone] to be sure your drugs can be disposed of in this way. Some medicines may require a different approach.4.Never flush your medications down the toilet. IF YOU HAVE BEEN PRESCRIBED AN OPIOIDS FOR PAIN If you have been prescribed an opioid (such as hydrocodone, oxycodone or morphine), it is critical to understand the possible side effects and risks of opioid pain medications. Even when taken as directed, opioids can have several side effects including: Tolerance, meaning you might need to take more of a medication for the same pain relief. Nausea, vomiting and/or constipation. Sleepiness, dizziness, dry mouth, confusion, depression or itching. Physical dependence, meaning you have withdrawal symptoms when a medication is stopped ? this can develop within a few days. KNOW YOUR RESPONSIBILITIES It is important to know exactly how much and how often to take the opioid pain medications you are prescribed. Never take opioids in higher amounts or more often than prescribed. Do not combine opioids with alcohol or other drugs that cause drowsiness, such as benzodiazepines, also known as benzos, including diazepam and alprazolam, muscle relaxants or sleep aids. Never sell or share prescription opioids. This is illegal. Store opioids in a secure place and out of reach of others (including children, family, friends and visitors). The last page(s) of this document has been signed and retained as a CHART COPY Signatures Patient Education Materials Viral Syndrome (Adult)(Haitian) Viral Syndrome (Adult)(Haitian) Pharyngitis, Report Pending(Haitian) Viral Syndrome (Adult)(Haitian) Medication Leaflets My discharge plan and instructions have been reviewed and explained to me and I,MARILU BETANCOURT understand my current condition and have read and understand these discharge instructions. I have received a written copy of the plan/instructions. If I have questions, I am aware that I should contact my doctor. Patient/Electronic Transaction Implementer Signature: Date/Time: Relationship to Patient: ___ Witness Name/Signature: Date/Time: [facility] 05-12-2023 Evaluation + Plan note Diagnostic Tests PendingGonorrhea Culture 05/12/23 [facility] 05-07-2023 Evaluation + Plan note Diagnostic Tests PendingChlamydia trachomatis PCR 05/07/23N. gonorrhoeae PCR 05/07/23 [facility] 05-07-2023 Hospital Discharge instructions Patient Education 05/07/2023 02:28:24 Azithromycin tablets(Haitian) Azithromycin tablets Qu es anupama medicamento? La AZITROMICINA es un antibi krishna macr lido. Se utiliza para tratar o prevenir ciertos tipos de infecciones bacterianas. No es efectivo para resfr os, gripe u otras infecciones de origen viral. C mo shola utilizar anupama medicamento? [place] anupama medicamento por v a oral con un vaso lleno de agua. Siga las instrucciones de la etiqueta del medicamento. Las tabletas se puede tommy con comida o con el est nancy vac o. Si el medicamento le produce malestar estomacal, t daniel con alimentos. Winnett trevizo medicamento a intervalos regulares. No tome trevizo medicamento con deja frecuencia mayor a la indicada. Complete todas las dosis de trevizo medicamento dorie se le haya indicado, aun si se siente mejor. No omita ninguna dosis ni suspenda el uso de trevizo medicamento antes de lo indicado. Hable con trevizo pediatra para informarse acerca del uso de anupama medicamento en ni os. Aunque anupama medicamento se puede recetar a ni os vasquez mj os dorie de 6 meses de edad con ciertas afecciones, existen precauciones que deben tomarse. Qu efectos secundarios puedo tener al utilizar anupama medicamento? Efectos secundarios que debe informar a trevizo m dico o a trevizo profesional de la mesfin vasquez pronto dorie sea posible: reacciones al rgicas, dorie erupci n cut halina, comez n/picaz n o urticaria, e hinchaz n de la sivan, los labios o la lengua diarrea con kim o acuosa problemas respiratorios dolor en el pecho ritmo cardiaco r pido, irregular debilidad muscular enrojecimiento, formaci n de ampollas, descamaci n o distensi n de la piel, incluso dentro de la boca signos y s ntomas de lesi n al h gado, dorie orina amarilla oscura o alberto n; sensaci n general de estar enfermo o s ntomas gripales; heces claras; p rdida de apetito; n useas; dolor en la abhi n abdominal superior derecha; cansancio o debilidad inusual; color amarillento de los ojos o la piel manchas radha o llagas en la boca cansancio o debilidad inusual Efectos secundarios que generalmente no requieren atenci n m dica (inf rmelos a trevizo m dico o a trevizo profesional de la mesfin si persisten o si son molestos): diarrea n useas dolor estomacal v xiang Qu puede interactuar con anupama medicamento? No tome anupama medicamento con ninguno de los siguientes f rmacos: lincomicina Esta medicina tambi n puede interactuar con los siguientes medicamentos: anti cidos que contienen aluminio o magnesio p ldoras anticonceptivas ciertos medicamentos para el ritmo cardiaco irregular, tales dorie amiodarona, bepridil, dofetilida, encainida, flecainida, propafenona y quinidina ciclosporina digoxina nelfinavir fenito na warfarina Qu sucede si me olvido de deja dosis? Si olvida deja dosis, t kuldip lo antes posible. Si es rancho la hora de la pr xima dosis, tome s lo nathan dosis. No tome dosis adicionales o dobles. D nde shola guardar mi medicina? Mant ngala fuera del alcance de los ni os. Gu rdela a temperatura ambiente, entre 15 y 30 grados C (59 y 86 grados F). Deseche todo el medicamento que no haya utilizado, despu s de la fecha de vencimiento. Qu le shola informar a mi profesional de la mesfin antes de tommy anupama medicamento? Necesitan saber si usted presenta alguno de los siguientes problemas o situaciones: antecedentes de enfermedades de la kim, tales dorie leucemia antecedentes de ritmo cardiaco irregular enfermedad renal enfermedad hep gagan miastenia grave deja reacci n al rgica o inusual a la azitromicina, a la eritromicina, a otros antibi ticos macr lidos, alimentos, colorantes o conservantes si est embarazada o buscando quedar embarazada si est amamantando a un beb A qu shola estar atento al usar anupama medicamento? Informe a trevizo m dico o a trevizo profesional de la mesfin si amelia s ntomas no comienzan a mejorar o si empeoran. No trate la diarrea con productos de venta beatriz. Contacte a trevizo m dico si tiene diarrea por m s de 2 d as, o si es grave y acuosa. Anupama medicamento puede aumentar trevizo sensibilidad al sean. Evite la jay solar. Si no la puede evitar, utilice ropa protectora y crema de protecci n solar. No utilice l mparas simon, azam simon ni cabinas simon. [id number] [employer]. [address] [place] [address]. Todos los derechos reservados. Esta informaci n no pretende sustituir la atenci n m dica profesional. S lo trevizo m dico puede diagnosticar y tratar un problema de mesfin. Follow Up Care 05/07/2023 00:59:06 With:RENA FIELDS Address: [address] [facility] [place] [phone] When:2-4 days [facility] 05-07-2023 Note Discharge Instructions Thank you for allowing [place] to assist you with your healthcare needs. The following is important discharge information regarding your hospital visit. Diagnosis from Today's Visit Cervical adenitis Rash What to Do Next Instructions from Your Care Team No qualifying data available. Post Acute Orders No qualifying data available. You Need to Schedule the Following Appointments Follow Up with MAST, RENA MALTED MILK MIXER-SPECIAL PROCEDURE TECHNOLOGIST When Within 2-4 days Where: [address] [facility] [place] [phone] Allergies NKA Medications Please ask your primary doctor or pharmacist before taking any other medication not listed, including over the counter drugs, herbal medications, vitamins and or supplements as they may interact with your home medications. What How Much When Why Instructions Last Dose New azithromycin (Zithromax Z-Andrey 250 mg oral tablet) 1 dose by mouth Every day Duration: 5 Days Printed Prescription Please take this list to your next doctor s visit. Bring all medications you take, including over the counter medications, herbals and other supplements with you to your doctor s visit. Patients and families are reminded to discard old lists and to update any records with all medication providers or retail pharmacies. Education Materials Azithromycin tablets Qu es anupama medicamento? La AZITROMICINA es un antibi krishna macr lido. Se utiliza para tratar o prevenir ciertos tipos de infecciones bacterianas. No es efectivo para resfr os, gripe u otras infecciones de origen viral. C mo shola utilizar anupama medicamento? [place] anupama medicamento por v a oral con un vaso lleno de agua. Siga las instrucciones de la etiqueta del medicamento. Las tabletas se puede tommy con comida o con el est nancy vac o. Si el medicamento le produce malestar estomacal, t daniel con alimentos. [place] trevizo medicamento a intervalos regulares. No tome trevizo medicamento con deja frecuencia mayor a la indicada. Complete todas las dosis de trevizo medicamento dorie se le haya indicado, aun si se siente mejor. No omita ninguna dosis ni suspenda el uso de trevizo medicamento antes de lo indicado. Hable con trevizo pediatra para informarse acerca del uso de anupama medicamento en ni os. Aunque anupama medicamento se puede recetar a ni os vasquez mj os dorie de 6 meses de edad con ciertas afecciones, existen precauciones que deben tomarse. Qu efectos secundarios puedo tener al utilizar anupama medicamento? Efectos secundarios que debe informar a trevizo m dico o a trevizo profesional de la mesfin vasquez pronto dorie sea posible: reacciones al rgicas, dorie erupci n cut halina, comez n/picaz n o urticaria, e hinchaz n de la sivan, los labios o la lengua diarrea con kim o acuosa problemas respiratorios dolor en el pecho ritmo cardiaco r pido, irregular debilidad muscular enrojecimiento, formaci n de ampollas, descamaci n o distensi n de la piel, incluso dentro de la boca signos y s ntomas de lesi n al h gado, dorie orina amarilla oscura o alberto n; sensaci n general de estar enfermo o s ntomas gripales; heces claras; p rdida de apetito; n useas; dolor en la abhi n abdominal superior derecha; cansancio o debilidad inusual; color amarillento de los ojos o la piel manchas radha o llagas en la boca cansancio o debilidad inusual Efectos secundarios que generalmente no requieren atenci n m dica (inf rmelos a trevizo m dico o a trevizo profesional de la mesfin si persisten o si son molestos): diarrea n useas dolor estomacal v xiang Qu puede interactuar con anupama medicamento? No tome anupama medicamento con ninguno de los siguientes f rmacos: lincomicina Esta medicina tambi n puede interactuar con los siguientes medicamentos: anti cidos que contienen aluminio o magnesio p ldoras anticonceptivas ciertos medicamentos para el ritmo cardiaco irregular, tales dorie amiodarona, bepridil, dofetilida, encainida, flecainida, propafenona y quinidina ciclosporina digoxina nelfinavir fenito na warfarina Qu sucede si me olvido de deja dosis? Si olvida deja dosis, t kuldip lo antes posible. Si es rancho la hora de la pr xima dosis, tome s lo nathan dosis. No tome dosis adicionales o dobles. D nde shola guardar mi medicina? Mant ngala fuera del alcance de los ni os. Gu rdela a temperatura ambiente, entre 15 y 30 grados C (59 y 86 grados F). Deseche todo el medicamento que no haya utilizado, despu s de la fecha de vencimiento. Qu le shola informar a mi profesional de la mesfin antes de tommy anupama medicamento? Necesitan saber si usted presenta alguno de los siguientes problemas o situaciones: antecedentes de enfermedades de la kim, tales dorie leucemia antecedentes de ritmo cardiaco irregular enfermedad renal enfermedad hep gagan miastenia grave deja reacci n al rgica o inusual a la azitromicina, a la eritromicina, a otros antibi ticos macr lidos, alimentos, colorantes o conservantes si est embarazada o buscando quedar embarazada si est amamantando a un beb A qu shola estar atento al usar anupama medicamento? Informe a trevizo m dico o a trevizo profesional de la mesfin si amelia s ntomas no comienzan a mejorar o si empeoran. No trate la diarrea con productos de venta beatriz. Contacte a trevizo m dico si tiene diarrea por m s de 2 d as, o si es grave y acuosa. Anupama medicamento puede aumentar trevizo sensibilidad al sean. Evite la jay solar. Si no la puede evitar, utilice ropa protectora y crema de protecci n solar. No utilice l mparas simon, azam simon ni cabinas simon. [id number] [employer]. [address] [place] [address], [place] [address]. Todos los derechos reservados. Esta informaci n no pretende sustituir la atenci n m dica profesional. S lo trevizo m dico puede diagnosticar y tratar un problema de mesfin. Additional Information VACCINATE! IT SAVES LIVES! Members of the community who have not yet received the COVID-19 vaccine and would like to receive it can visit one of [facility] vaccine clinics. There are many vaccine clinic locations within the [facility]. For locations and available times, please visit [email or web address] [email or web address] It is important to note that some COVID mobile vaccine clinics are held outdoors and may be canceled in rainy or stormy conditions. To learn more about pediatric vaccinations (ages 5-11), we invite you to visit the [facility] webpage. https://www.Sociogramicss.org/pag es/5675-Txdrp-Etuyxcnaiow-Frequent iy-Qhboj-Yapyyqkhf.html To learn more about the COVID-19 vaccine, we invite you to visit the CDC website for a list of frequently asked questions. https://www.cdc.gov/coronavirus/20 19-ncov/vaccines/faq.html [place] [facility] Patient Portal Access Instructions: Stay connected with your healthcare team and access your personal medical information anytime with the [employer] Patient Portal. If you would like a full copy of your medical records please contact the [facility] Medical Records Department Monday through Monday between 8a.m. and 4:30p.m. Please follow the directions below to access the portal: 1.Access the email account you provided upon registration to the hospital.2.Look for an invitation email from [facility].3.Open the email and access the invitation link: Accept Invitation to [place] [employer]4.Fill in the required lai to create your account. Sign into [email or web address] with your username and password that you created in the above steps to stay up to date. You can then view a summary of results, a summary of your visits, and the ability to download your summaries to your computer or send the information securely to a physician. Remember that your healthcare information is confidential, so carefully consider who you will allow to register on the [employer] Patient Portal for access to your information. You can also access the [employer] Patient Portal on the [employer]. Simply click on Health Records under Health Data and then click on the [employer] logo. HOW TO SAFELY DISPOSE OF PRESCRIPTION MEDICATIONS Please use one of the following methods to safely dispose of your unused medications. 1.Use a drug disposal kit: the drug disposal pouch allows you to safely discard your old and unused drugs. Ask your nurse to give you one when you are discharged.2.Visit a local take-back location: Many local pharmacies and police departments have programs that collect old and unwanted prescription drugs. Call your local pharmacy or go to http://[employer].Teachable/2W3Mj1x to find one close to you.3.Make use of household items: Use cat litter or old coffee grounds to dispose medications if other options are not available. Mix your drugs with these household products, seal them in an airtight container and throw it into the garbage. Call [facility]: [phone] to be sure your drugs can be disposed of in this way. Some medicines may require a different approach.4.Never flush your medications down the toilet. IF YOU HAVE BEEN PRESCRIBED AN OPIOIDS FOR PAIN If you have been prescribed an opioid (such as hydrocodone, oxycodone or morphine), it is critical to understand the possible side effects and risks of opioid pain medications. Even when taken as directed, opioids can have several side effects including: Tolerance, meaning you might need to take more of a medication for the same pain relief. Nausea, vomiting and/or constipation. Sleepiness, dizziness, dry mouth, confusion, depression or itching. Physical dependence, meaning you have withdrawal symptoms when a medication is stopped ? this can develop within a few days. KNOW YOUR RESPONSIBILITIES It is important to know exactly how much and how often to take the opioid pain medications you are prescribed. Never take opioids in higher amounts or more often than prescribed. Do not combine opioids with alcohol or other drugs that cause drowsiness, such as benzodiazepines, also known as benzos, including diazepam and alprazolam, muscle relaxants or sleep aids. Never sell or share prescription opioids. This is illegal. Store opioids in a secure place and out of reach of others (including children, family, friends and visitors). The last page(s) of this document has been signed and retained as a CHART COPY Signatures Patient Education Materials Azithromycin tablets(Haitian) Medication Leaflets My discharge plan and instructions have been reviewed and explained to me and I,MARILU BETANCOURT understand my current condition and have read and understand these discharge instructions. I have received a written copy of the plan/instructions. If I have questions, I am aware that I should contact my doctor. Patient/Electronic Transaction Implementer Signature: Date/Time: Relationship to Patient: ___ Witness Name/Signature: Date/Time: [facility] Evaluation + Plan note Future Appointments Appointment Date:08/11/2023 09:45:00 AM Scheduled Provider: Location:[facility] Appointment Type:PC Nurse [facility] Evaluation + Plan note Future Appointments Appointment Date:10/03/2023 08:00:00 AM Scheduled Provider:RENA FIELDS Location:[facility] Appointment Type:PC OV Future Scheduled TestsHIV 1/2 Ab 08/25/23 [facility] Evaluation + Plan note Future Appointments Appointment Date:11/14/2023 08:30:00 AM Scheduled Provider:RENA FIELDS Location:[facility] Appointment Type:PC OV Future Scheduled TestsHIV 1/2 Ab 08/25/23 [facility] Hospital course Narrative No data available for this section [facility] Hospital Discharge instructions No data available for this section [facility] Progress note No data available for this section [facility] Summary Purpose Family History No Family History Records Found Advance Directives No Advanced Directives Records Found Additional Source Comments Patient Care team informatio n (unrecognized section and content) Care Team Personnel Name: MAST, RENA MALTED MILK MIXER-SPECIAL PROCEDURE TECHNOLOGIST Position: P4 [employer] Programmer Member Role: Primary Care Physician Address: Address: [address] [place] [address] Name: QUAN MAY MD Position: ED Physician Member Role: ED Physician Address: Address: [address] [place] [address] Care Team Related Persons Name: ZUÑIGA, APTRICIO Care Team Personnel Name: MAST, RENA MALTED MILK MIXER-SPECIAL PROCEDURE TECHNOLOGIST Position: P[employer] Programmer Member Role: Primary Care Physician Address: Address: [address] [place] [address] Care Team Related Persons Name: ZUÑIGA, PATRICIO Care Team Personnel Name: MAST, RENA MALTED MILK MIXER-SPECIAL PROCEDURE TECHNOLOGIST Position: P[employer] Programmer Member Role: Primary Care Physician Address: Address: [address] [place] [address] Care Team Related Persons Name: ZUÑIGA, PATRICIO Care Team Personnel Name: MAST, RENA MALTED MILK MIXER-SPECIAL PROCEDURE TECHNOLOGIST Position: P4 [employer] Programmer Member Role: Primary Care Physician Address: Address: [address] [place] [address] Care Team Related Persons Name: ZUÑIGA, PATRICIO Care Team Personnel Name: MAST, RENA MALTED MILK MIXER-SPECIAL PROCEDURE TECHNOLOGIST Position: P4 [employer] Programmer Member Role: Primary Care Physician Address: Address: [address] [place] [address] Care Team Related Persons Name: ZUÑIGA, PATRICIO Care Team Personnel Name: MAST, RENA MALTED MILK MIXER-SPECIAL PROCEDURE TECHNOLOGIST Position: P[employer] Programmer Member Role: Primary Care Physician Address: Address: [address] [place] [address] [place] [address]- [place] Name: VITALY Brar Position: AO RN Member Role: ED RN Name: SOFIA HOLLAND MD Position: ED Physician Member Role: Ordering Physician Address: Address: [facility] [address] [place] [address]- Care Team Related Persons Name: PATRICIO ZUÑIGA Care Team Personnel Name: RENA FIELDS APRN-KAYE Position: P4 [employer] Programmer Member Role: Primary Care Physician Address: Address: [address] [place] [address]- Care Team Related Persons Name: PATRICIO ZUÑIGA (unrecognized sect ion and content) No Status Records Found INFORMATION SOURCE (unrecogn ized section and content) FOR RECORDS PERTAINING TO PATIENTS WHO ARE OR HAVE BEEN ENROLLED IN A CHEMICAL DEPENDENCY/SUBSTANCEABUSE PROGRAM, SOME INFORMATION MAY BE OMITTED. This clinical summary was aggregated from multiple sources. Caution should be exercised in using it in the provision of clinical care. This summary normalizes information from multiple sources, and as a consequence, information in this document may materially change the coding, format and clinical context of patient data. In addition, data may be omitted in some cases. CLINICAL DECISIONS SHOULD BE BASED ON THE PRIMARY CLINICAL RECORDS. [employer] provides no warranty or guarantee of the accuracy or completeness of information in this document.
== END | disposition home or self-care (01) ==
LOC: LAB 09:42
PROVIDERS: PCP Nurse Practitioner Adult Health; Referring Provider Otolaryngology; Visit Provider Otolaryngology
DX: R22.1 Localized swelling, mass and lump, neck (principal)